=== PATIENT | male | born 1955 | race Native Hawaiian/Other Pacific Islander ===

== ENCOUNTER 2018-05-15 12:10 | Outpatient (CLI) | payer BC ==
[2018-05-15 13:09] LABS: POTASSIUM 4.4 mmol/L (3.6-5.2)
== END 2018-05-15 20:06 | disposition home or self-care (01) ==
LOC: LABW 12:10
PROVIDERS: Internal Medicine Cardiovascular Disease
DX: E11.69 Type 2 diabetes mellitus with other specified complication (principal)
CPT/HCPCS: 36415; 80048; 82043; 82570; 83036; 83880

== ENCOUNTER 2020-08-09 08:00 | Outpatient (CLI) | payer OTHER | END 2020-08-09 23:55 | disposition home or self-care (01) | LOC: US 08:00 | PROVIDERS: ATTEND Nurse Practitioner | DX: G45.9 Transient cerebral ischemic attack, unspecified (principal) ==

== ENCOUNTER 2022-01-09 16:32 | Inpatient (IN) | payer OTHER | END 2022-01-12 12:20 | disposition still patient (30) | LOC: PAVC 16:32 | PROVIDERS: ADMIT Family Medicine; ATTEND Family Medicine | DX: I61.8 Other nontraumatic intracerebral hemorrhage (principal); G93.40 Encephalopathy, unspecified; M62.81 Muscle weakness (generalized); R47.1 Dysarthria and anarthria; R26.2 Difficulty in walking, not elsewhere classified; R26.81 Unsteadiness on feet; R13.11 Dysphagia, oral phase; R48.8 Other symbolic dysfunctions; Z74.1 Need for assistance with personal care ==

== ENCOUNTER 2022-01-10 05:50 | Outpatient (CLI) | payer OTHER | END 2022-01-10 20:55 | disposition home or self-care (01) | LOC: LAB 05:50 | PROVIDERS: ATTEND Family Medicine | DX: I61.8 Other nontraumatic intracerebral hemorrhage (principal) | CPT/HCPCS: 87081 ==

== ENCOUNTER 2022-01-12 12:35 | Inpatient (IN) | payer OTHER | END 2022-01-25 11:55 | disposition home or self-care (01) | LOC: PAVC 12:35 | PROVIDERS: ADMIT Family Medicine; ATTEND Family Medicine | DX: I61.8 Other nontraumatic intracerebral hemorrhage (principal); G93.40 Encephalopathy, unspecified; M62.81 Muscle weakness (generalized); R47.1 Dysarthria and anarthria; R26.2 Difficulty in walking, not elsewhere classified; R26.81 Unsteadiness on feet; R13.11 Dysphagia, oral phase; R48.8 Other symbolic dysfunctions; Z74.1 Need for assistance with personal care ==

== ENCOUNTER 2022-01-19 01:06 | Emergency (ER) | payer OTHER ==
[~2022-01-19] VITALS: Ht 170.2 cm; Wt 99.8 kg
[2022-01-19 01:27] VITALS: TEMP 97.8
[2022-01-19 01:56] LABS: PLATELET COUNT 187 K/uL (142-355)
[2022-01-19 02:10] LABS: POTASSIUM 3.5 mmol/L (3.6-5.2)
[2022-01-19 04:57] VITALS: BP 133/70
== END 2022-01-19 05:00 ==
LOC: ED 01:06
PROVIDERS: Emergency Medicine Emergency Medical Services
DX: J98.01 Acute bronchospasm (principal); R07.89 Other chest pain
CPT/HCPCS: 36415; 80053; 83735; 84484; 85027; 85610; 85730; 93005; 94664; 99283

== ENCOUNTER 2022-02-14 13:08 | Outpatient (CLI) | payer OTHER | END 2022-02-14 19:02 | disposition home or self-care (01) | LOC: RAD 13:08 | PROVIDERS: ATTEND Nurse Practitioner Family | DX: M79.645 Pain in left finger(s) (principal) ==

== ENCOUNTER 2022-03-29 11:53 | Outpatient (CLI) | payer OTHER ==
[~2022-03-29] VITALS: Ht 170.2 cm; Wt 86.2 kg
[2022-03-29 12:26] LABS: PLATELET COUNT 211 K/uL (142-355)
[2022-03-29 12:30] VITALS: BP 126/60; TEMP 97.7
[2022-03-29 12:36] LABS: POTASSIUM 4.3 mmol/L (3.6-5.2)
[2022-03-29 14:36] VITALS: BP 113/60; TEMP 97.8
== END 2022-03-29 18:57 | disposition home or self-care (01) ==
LOC: INF 11:53
PROVIDERS: Nurse Practitioner Family; ATTEND Family Medicine
DX: K59.00 Constipation, unspecified (principal); R10.11 Right upper quadrant pain; E86.0 Dehydration
CPT/HCPCS: 36415; 80053; 82150; 83690; 85027; 96360

== ENCOUNTER 2022-04-04 08:54 | Outpatient (CLI) | payer OTHER | END 2022-04-04 21:53 | disposition home or self-care (01) | LOC: US 08:54 → MRI 13:00 → US 21:53 → MRI 04-05 15:00 | PROVIDERS: ATTEND Physician Assistant | DX: M25.512 Pain in left shoulder (principal); R10.11 Right upper quadrant pain ==

== ENCOUNTER 2022-04-26 08:02 | Outpatient (CLI) | payer OTHER | END 2022-04-26 18:59 | disposition home or self-care (01) | LOC: NM 08:02 | PROVIDERS: ATTEND Nurse Practitioner Family | DX: K31.84 Gastroparesis (principal) | CPT/HCPCS: A9541 ==

== ENCOUNTER 2022-07-14 07:51 | Outpatient (CLI) | payer OTHER | END 2022-07-14 18:55 | disposition home or self-care (01) | LOC: RAD 07:51 | PROVIDERS: ATTEND Internal Medicine | DX: Z01.818 Encounter for other preprocedural examination (principal) | CPT/HCPCS: 93005 ==